=== PATIENT | male | born 1945 | race Caucasian/White ===

== ENCOUNTER → 2019-03-01 | Outpatient (CLI) | payer OTHER ==
--- NOTE | 2019-02-24 09:38 | NUR ---
pt called and notified of time to be here. Instructions given.
[~2019-03-01] MED LIST: CARAFATE 1GM1 G PO; KLONOPIN 1MG1 MG PO; REMERON 15M15 MG/TA1 PO; TOPROL XL 50MG50 MG PO; XARELTO20 MG PO
== END ==
LOC: COL.RAD 02-23 08:15
DX: M47.816 Spondylosis without myelopathy or radiculopathy, lumbar region (principal); R60.0 Localized edema; M51.46 Schmorl's nodes, lumbar region; M51.44 Schmorl's nodes, thoracic region